=== PATIENT | male | born 1950 | race Caucasian/White ===

== ENCOUNTER 2022-01-13 01:56 | Day surgery (SDC) | payer BC, SELFPAY ==
[2022-01-05 09:26] VITALS: BMI 25.7
[2022-01-13 11:57] VITALS: BP 148/99; PULSE 125; RESP 18; TEMP 36.4; O2SAT 97; BMI 24.9
--- NOTE | 2022-01-13 12:16 | WPDGICN ---
Assessment and Plan Assessment and plan (1) Encounter for screening colonoscopy: Code(s): Z12.11 - Encounter for screening for malignant neoplasm of colon Status: Acute Assessment and Plan: Patient presents for screening colonoscopy. Appears be at average risk for colon polyps. Warfarin will be held briefly for exam. Further recommendations may be given after endoscopy. GI Consult Note Consult date/time: 01/13/22 12:16 Reason for consult: Neoplasia screening. HPI: Massimo Gutierrez is a 71 year old male Presents for screening colonoscopy. Patient reports his current weight appetite bowel movements are normal. He denies abdominal pain. He has had no bleeding. Family history is noncontributory. Patient previously followed in [place]. He has a history of atrial fibrillation for which she is on chronic warfarin anticoagulation. This is on hold for his anticipated colonoscopy. Review of Systems Review of Systems: Review of systems noncontributory. [facility] Social History Social History Smoking packs per day: 1 Smoking cigarettes per day: 20.0 Years smoked: 38 Smoking pack-years: 38.00 Smoking status: Current some day smoker Tobacco type: cigarettes Additional smoking assessment comments: STOPPED SMOKING 2007- STARTED 2019 CYRRENTLY 10 CIGS A DAY Alcohol intake: current Drinks per week: 10 Alcohol use details: BEERS Substance use: former Substance use type: marijuana Living arrangements: alone Spiritual care concerns: No Meds Home Medications and Allergies Home Medications Medication Instructions Recorded Confirmed Type sodium sul 1.479 gram-potas ch See Rx Instructions PO PER PKG DIR 12/19/21 01/13/22 Rx 0.188 gram-magnes sul 0.225 gram #24 tabs tablet (Sutab) amitriptyline 25 mg tablet 1 tablet PO BID 01/05/22 01/13/22 History aspirin 81 mg tablet 81 mg PO DAILY 01/05/22 01/13/22 History cholecalciferol (vitamin D3) 50 50 mcg PO DAILY 01/05/22 01/13/22 History mcg (2,000 unit) capsule (Vitamin D3) ezetimibe 10 mg tablet 1 tablet PO DAILY 01/05/22 01/13/22 History fluticasone 250 mcg-salmeterol 50 1 inh inhalation Q12H 01/05/22 01/13/22 History mcg/dose blistr powdr for inhalation (Wixela Inhub) furosemide 20 mg tablet 1 tablet PO DAILY 01/05/22 01/13/22 History levalbuterol tartrate 45 2 inh inhalation Q6-8H PRN 01/05/22 01/13/22 History mcg/actuation aerosol inhaler Shortness Of Breath Or Wheezing metoprolol tartrate 50 mg tablet 1 tablet PO BID 01/05/22 01/13/22 History prednisone 20 mg tablet 20 mg PO DAILY 01/05/22 01/13/22 History simvastatin 80 mg tablet 1 tablet PO QACDINNER 01/05/22 01/13/22 History warfarin 1 mg tablet 1 tablet PO DAILY 01/05/22 01/13/22 History warfarin 6 mg tablet 1 tablet PO DAILY 01/05/22 01/13/22 History Allergies Allergy/AdvReac Type Severity Reaction Status Date / Time atorvastatin [From Lipitor] Allergy Severe Other Verified 01/13/22 12:13 budesonide [From Symbicort] Allergy Severe Cough Verified 01/13/22 12:13 formoterol [From Symbicort] Allergy Severe Cough Verified 01/13/22 12:13 Exam Narrative: Physical exam reveals patient to be alert. Vital signs stable. HEENT exam is unremarkable. Patient is anicteric. Lungs are clear to auscultation and percussion. Heart is without murmur or extra sounds. Abdominal exam bowel sounds present soft nontender with no organomegaly. Digital external rectal exam is normal.
[2022-01-13] MEDS: LACTATED RINGERS 1,000 ML 150 ML IV CONT (12:34)
--- NOTE | 2022-01-13 12:44 | WPDANESEPPF ---
Anes - Initial Pre Proc Eval Procedure: Operation Date: 01/13/22 13:30 Proposed Procedures p Screening Colonoscopy - Fidencio Dejesus MD Date/Time: 01/13/22 12:44 Surgeon: Fidencio Dejesus MD Pre Op Diagnosis: neoplasm screening Patient Data Age: 71 Gender: M Height: 1.75 m Weight: 76.5 kg Last Vital Signs Temp 97.6 F 01/13/22 11:57 Pulse 125 H 01/13/22 11:57 Resp 18 01/13/22 11:57 BP 148/99 H 01/13/22 11:57 Pulse Ox 97 01/13/22 11:57 O2 Del Method Room Air 01/13/22 11:57 Allergies Allergy/AdvReac Type Severity Reaction Status Date / Time atorvastatin [From Lipitor] Allergy Severe Other Verified 01/13/22 12:13 budesonide [From Symbicort] Allergy Severe Cough Verified 01/13/22 12:13 formoterol [From Symbicort] Allergy Severe Cough Verified 01/13/22 12:13 Home Medications Medication Instructions Recorded Confirmed Type sodium sul 1.479 gram-potas ch See Rx Instructions PO PER PKG DIR 12/19/21 01/13/22 Rx 0.188 gram-magnes sul 0.225 gram #24 tabs tablet (Sutab) amitriptyline 25 mg tablet 1 tablet PO BID 01/05/22 01/13/22 History aspirin 81 mg tablet 81 mg PO DAILY 01/05/22 01/13/22 History cholecalciferol (vitamin D3) 50 50 mcg PO DAILY 01/05/22 01/13/22 History mcg (2,000 unit) capsule (Vitamin D3) ezetimibe 10 mg tablet 1 tablet PO DAILY 01/05/22 01/13/22 History fluticasone 250 mcg-salmeterol 50 1 inh inhalation Q12H 01/05/22 01/13/22 History mcg/dose blistr powdr for inhalation (Wixela Inhub) furosemide 20 mg tablet 1 tablet PO DAILY 01/05/22 01/13/22 History levalbuterol tartrate 45 2 inh inhalation Q6-8H PRN 01/05/22 01/13/22 History mcg/actuation aerosol inhaler Shortness Of Breath Or Wheezing metoprolol tartrate 50 mg tablet 1 tablet PO BID 01/05/22 01/13/22 History prednisone 20 mg tablet 20 mg PO DAILY 01/05/22 01/13/22 History simvastatin 80 mg tablet 1 tablet PO QACDINNER 01/05/22 01/13/22 History warfarin 1 mg tablet 1 tablet PO DAILY 01/05/22 01/13/22 History warfarin 6 mg tablet 1 tablet PO DAILY 01/05/22 01/13/22 History Laboratory Tests 01/13/22 12:26 PT Pending INR Pending Patient hx anesthesia problems: none Family hx anesthesia problems: none Results Review: All pre-operative results and documents have been reviewed as part of the pre-operative evaluation. [facility] Social History Social History Smoking packs per day: 1 Smoking cigarettes per day: 20.0 Years smoked: 38 Smoking pack-years: 38.00 Smoking status: Current some day smoker Tobacco type: cigarettes Additional smoking assessment comments: STOPPED SMOKING 2007- STARTED 2019 CYRRENTLY 10 CIGS A DAY Alcohol intake: current Drinks per week: 10 Alcohol use details: BEERS Substance use: former Substance use type: marijuana Living arrangements: alone Spiritual care concerns: No Anes - Eval Final PreProcedure Day of Procedure 01/13/22 12:44 Patient weight: normal Heart: regular rate and rhythm and tachycardia Lungs: clear to auscultation Airway: Mallampati scale class II Neurological: alert and oriented Last oral intake: >/= 8 hours ASA classification: III Emergent: no Anesthetic plan: proceed Anesthesia type and monitoring: general GIVS and standard monitoring Results Review: All pre-operative results and documents have been reviewed as part of the pre-operative evaluation. Informed Consent: The patient's anesthetic plan and its attendant risks and benefits were discussed with the patient/family/POA. Questions were solicited and answers provided to the satisfaction of the patient/family/POA.
[2022-01-13 13:00] LABS: INR 1.1; Prothrombin Time 13.4 Seconds (11.1-14.7)
[2022-01-13 13:25] VITALS: BP 98/68; PULSE 116; RESP 22; O2SAT 96
[2022-01-13 13:35] VITALS: BP 110/71; PULSE 110; RESP 25; O2SAT 98
[2022-01-13 13:45] VITALS: BP 120/94; PULSE 114; RESP 27; O2SAT 97
== END 2022-01-13 13:56 | disposition home or self-care (01) ==
PROVIDERS: PCP Internal Medicine; Visit Provider Internal Medicine Gastroenterology
PROC: 0DJD8ZZ Inspection of Lower Intestinal Tract, Via Natural or Artificial Opening Endoscopic (ICD-10-PCS; CPT 45378; principal; 2022-01-13 13:30)
DX: Z12.11 Encounter for screening for malignant neoplasm of colon (principal); K64.8 Other hemorrhoids; Z79.01 Long term (current) use of anticoagulants; Z79.51 Long term (current) use of inhaled steroids; F17.210 Nicotine dependence, cigarettes, uncomplicated
CPT/HCPCS: 45378; 36415; 85610; J2704; J7120